=== PATIENT | male | born 1960 | race Caucasian/White ===

== ENCOUNTER 2020-10-12 14:09 | Inpatient (IN) | payer OTHER ==
[~2020-10-12] VITALS: Ht 165.1 cm; Wt 61.8 kg
[2020-10-12 14:57] LABS: BASOPHILS ABSOLUTE AUTO 0.02 K/mm3 (0.00-0.23); BASOPHILS PERCENT AUTO 0 % (0-2); EOSINOPHILS ABSOLUTE AUTO 0.03 K/mm3 (0.00-0.68); EOSINOPHILS PERCENT AUTO 0 % (0-6); Hematocrit 39.7 % (37.0-53.0); Hemoglobin 13.2 g/dL (13.5-17.5); IMMATURE GRAN ABSOLUTE AUTO 0.01 K/mm3 (0.00-0.10); IMMATURE GRAN PERCENT AUTO 0 % (0-1); LYMPHOCYTES ABSOLUTE AUTO 1.38 K/mm3 (0.84-5.20); LYMPHOCYTES PERCENT AUTO 21 % (21-46); MONOCYTES ABSOLUTE AUTO 0.46 K/mm3 (0.16-1.47); MONOCYTES PERCENT AUTO 7 % (4-13); Mean Corpuscular HGB Conc 33.2 g/dL (31.5-36.5); Mean Corpuscular Volume 87 fL (80-100); Mean Platelet Volume 8.9 fL (9.1-12.4); NEUTROPHILS ABSOLUTE AUTO 4.83 K/mm3 (1.96-9.15); NEUTROPHILS PERCENT AUTO 72 % (41-73); Platelet Count 345 K/mm3 (150-400); RDW Coefficient Variation 13.6 % (11.7-14.2); RDW Standard Deviation 43.8 fL (35.1-46.3); Red Blood Cell Count 4.55 M/mm3 (4.30-5.90); White Blood Cell Count 6.73 K/mm3 (4.00-11.30)
[2020-10-12 15:18] LABS: Alanine Aminotransfer (ALT/SGP 54 U/L (12-78); Albumin, Blood 3.2 g/dL (3.4-5.0); Alk Phos 103 U/L (50-136); Anion Gap 7 mmol/L (6-16); Aspartate Aminotrans (AST/SGOT 27 U/L (12-37); Bilirubin, Total 0.8 mg/dL (0.1-1.0); Blood Urea Nitrogen 26 mg/dL (8-24); Bun/Creatinine Ratio 23.9 (12.0-20.0); CO2, Blood 23 mmol/L (21-32); Calcium, Blood 8.2 mg/dL (8.5-10.1); Chloride, Blood 108 mmol/L (98-108); Creatinine, Blood 1.09 mg/dL (0.60-1.20); Globulin, Blood 3.1 g/dL (2.2-4.0); Glomerular Filtration Rate >60 (60-); Glucose, Blood 149 mg/dL (70-99); Potassium, Blood 3.8 mmol/L (3.5-5.5); Sodium, Blood 138 mmol/L (136-145); Total Protein, Blood 6.3 g/dL (6.4-8.2); Troponin I 0.088 ng/mL (0.000-0.040)
[2020-10-12 18:11] LABS: U Amphetamine Screen DETECTED; U Barbituate Screen Not Detected; U Benzodiazapine Screen Not Detected; U Cocaine Screen Not Detected; U Methadone Screen Not Detected; U Methamphetamine Screen DETECTED
[2020-10-12 18:12] LABS: U Buprenorphine Screen Not Detected; U Cannabinoids Screen DETECTED; U Opiates Screen Not Detected; U Oxycodone Screen Not Detected; U Phencyclidine Screen Not Detected; U Propoxyphene Screen Not Detected
--- NOTE | 2020-10-12 20:22 | NUR ---
ADMIT PT ARRIVED TO @1955, IND TRANSFERRED TO BED. DX c NEW ONSET CHF. ORIENTED TO & CALL LIGHT. WILL MONITOR.
[2020-10-13 03:06] LABS: BASOPHILS ABSOLUTE AUTO 0.04 K/mm3 (0.00-0.23); BASOPHILS PERCENT AUTO 1 % (0-2); EOSINOPHILS ABSOLUTE AUTO 0.06 K/mm3 (0.00-0.68); EOSINOPHILS PERCENT AUTO 1 % (0-6); Hemoglobin 13.3 g/dL (13.5-17.5); IMMATURE GRAN ABSOLUTE AUTO 0.03 K/mm3 (0.00-0.10); IMMATURE GRAN PERCENT AUTO 0 % (0-1); LYMPHOCYTES ABSOLUTE AUTO 1.49 K/mm3 (0.84-5.20); LYMPHOCYTES PERCENT AUTO 18 % (21-46); MONOCYTES ABSOLUTE AUTO 0.56 K/mm3 (0.16-1.47); MONOCYTES PERCENT AUTO 7 % (4-13); Mean Corpuscular HGB Conc 33.3 g/dL (31.5-36.5); Mean Corpuscular Volume 87 fL (80-100); NEUTROPHILS ABSOLUTE AUTO 5.94 K/mm3 (1.96-9.15); NEUTROPHILS PERCENT AUTO 73 % (41-73); Platelet Count 351 K/mm3 (150-400); RDW Coefficient Variation 13.6 % (11.7-14.2); RDW Standard Deviation 43.3 fL (35.1-46.3); Red Blood Cell Count 4.59 M/mm3 (4.30-5.90); White Blood Cell Count 8.12 K/mm3 (4.00-11.30)
[2020-10-13 03:25] LABS: Albumin, Blood 3.3 g/dL (3.4-5.0); Bilirubin, Total 0.8 mg/dL (0.1-1.0); Bun/Creatinine Ratio 22.1 (12.0-20.0); Calcium, Blood 8.7 mg/dL (8.5-10.1); Creatinine, Blood 1.31 mg/dL (0.60-1.20); Globulin, Blood 3.2 g/dL (2.2-4.0); Potassium, Blood 3.7 mmol/L (3.5-5.5); Total Protein, Blood 6.5 g/dL (6.4-8.2)
--- NOTE | 2020-10-13 04:55 | NUR ---
SHIFT SUMMARY AOX4. VSS. TELE NSR @98. SPO2 >90% ON RA. REPORTS SOB c MINIMAL ACTIVITY. LUNGS DIM IN BASES. HAS DRY NONPRODUCTIVE COUGH. RECIEVED IV LASIX IN ER FOR CHF, PT HAS VOIDED MULTIPLE TIMES. STRICT I&O. +1 EDEMA BLE. REPORTS FEELING "BLOATED" HOWEVER TOLERATING DIET & DENIES N/V. REPORTS 4/10 BACK PAIN, GAVE TYLENOL 1X. REPORTS HE'S BEEN HAVING DIFFICULTY SLEEPING, MEDICATED c RESTORIL PER ORDERS @HS & AROUND 0130 PT REPORTED FEELING RESTLESS, FIGITY, ANXIOUS & HAVING DIFFICULTY SLEEPING. PT REPORTS METH USE QOD & HASN'T "USED" SINCE ROUGHLY "TUESDAY" 10/10/20. CALL LIGHT IN REACH & PT ABLE TO MAKE NEEDS KNOWN.
--- NOTE | 2020-10-13 08:52 | NUR ---
ECHOCARDIOGRAM COMPLETED
--- NOTE | 2020-10-13 10:05 | NUR ---
PT STARTED SHIFT COMPLAINING OF HEARTBURN. NOTIFIED DR GARCIA AND SHE ADDED MEDICATION TO EMAR.PT THEN STATED HE WAS HAVING BACK PAIN DURING HIS ECHO AND INCREASED SOB. NOTIFIED DR GARCIA AND SHE ADDED A DOSE OF PAIN MEDS TO EMAR.
[2020-10-13 10:35] LABS: SARS-Cov-2 (COVID-19) PCR, MMC NEGATIVE (NEGATIVE)
--- NOTE | 2020-10-13 16:44 | NUR ---
PT AOX4 AND COOPERATIVE OF CARE. PT STARTED SHIFT WITH COMPLAINTS OF HEART BURN AND DR GARCIA NOTIFIED.PT THEN STARTED TO FEEL SHORT OF BREATH DURING ECHO. DR GARCIA ADDED MEDICATIONS TO EMAR. PT APPEAR TO BE IMPROVED. PT THEN REPORT TO AID A VERY DRASTIC EPISODE OF SOB AND DIAPHORETIC. VITALS AT THIS TIME WERE 143/[address] GARCIA NOTIFIED AND ADDED MORE MEDITATION TO EMAR AND CONSULT TO BOAT MASTER. CONSULT WAS PLACED IMMEDIATELY AND PT SEEMED TO IMPROVE AGAIN. PT @ 1605 ANOTHER EPISODE OF SOB OCCURED THIS LOAD MANAGER WAS IN THE ROOM WHEN THE EPISODE PEAKED AND WAS ABLE TO CALL [employer]. HR HAD DROPPED DOWN TO 59 DURING THE WORST POINT AND SOON HIS HR INCREASED PT STATED HE WAS FEELING BETTER. WILL CONTINUE TO MONITOR CLOSELY. CALL LIGHT IS WITHIN REACH.
--- NOTE | 2020-10-13 22:16 | NUR ---
HR CHANGES *LATE ENTRY* PT HAD 2 EPISODES OF HR CHANGES, 1ST @2004 & 2ND @2130. HR TRENDING IN 80'S THEN DROPS TO 58 & INCREASES TO 110 ALL WITHIN 1 MIN PER FOOTWEAR SALES REPRESENTATIVE @SINUS RHYTHM. WHEN THIS IS OCCURRING PT FEELS ANXIOUS, VERY SOB, HAS COLD SWEATS. DURING 2ND EPISODE TROMBONE SLIDE ASSEMBLER WAS GETTING VITALS, BP @163/112 & THEN DECREASED TO 131/100 ALSO SPO2 DROPPED TO 78% WHEN HR DROPPED & THEN SPO2 INCREASED BACK TO 98% ON RA WHILE HR INCREASES. DURING 1ST EPISODE PT WAS GRABBING TABLET OUT OF BEDSIDE DRAWER WHILE LYING IN BED & 2ND EPISODE PT WAS LYING RESTING IN BED SUCKING ON THROAT LOSANGE. PT STATES HE HAS BEEN HAVING THESE EPISODES FOR THE PAST 2 WKS. INFORMED CHARGE NURSE RADHA Guillen & UBALDO Srivastava WILL MONITOR.
[2020-10-14 05:13] LABS: BASOPHILS ABSOLUTE AUTO 0.04 K/mm3 (0.00-0.23); BASOPHILS PERCENT AUTO 1 % (0-2); EOSINOPHILS ABSOLUTE AUTO 0.01 K/mm3 (0.00-0.68); EOSINOPHILS PERCENT AUTO 0 % (0-6); Hematocrit 44.3 % (37.0-53.0); Hemoglobin 14.5 g/dL (13.5-17.5); IMMATURE GRAN ABSOLUTE AUTO 0.03 K/mm3 (0.00-0.10); IMMATURE GRAN PERCENT AUTO 0 % (0-1); LYMPHOCYTES ABSOLUTE AUTO 1.67 K/mm3 (0.84-5.20); LYMPHOCYTES PERCENT AUTO 21 % (21-46); MONOCYTES ABSOLUTE AUTO 0.68 K/mm3 (0.16-1.47); MONOCYTES PERCENT AUTO 9 % (4-13); Mean Corpuscular HGB 28.9 pg (26.0-34.0); Mean Corpuscular HGB Conc 32.7 g/dL (31.5-36.5); Mean Corpuscular Volume 88 fL (80-100); Mean Platelet Volume 9.3 fL (9.1-12.4); NEUTROPHILS PERCENT AUTO 69 % (41-73); Platelet Count 348 K/mm3 (150-400); RDW Coefficient Variation 13.5 % (11.7-14.2); RDW Standard Deviation 43.5 fL (35.1-46.3); Red Blood Cell Count 5.01 M/mm3 (4.30-5.90); White Blood Cell Count 7.83 K/mm3 (4.00-11.30)
[2020-10-14 05:49] LABS: Bun/Creatinine Ratio 26.1 (12.0-20.0); Calcium, Blood 8.7 mg/dL (8.5-10.1); Creatinine, Blood 1.42 mg/dL (0.60-1.20); Magnesium, Blood 2.3 mg/dL (1.6-2.4); Potassium, Blood 4.6 mmol/L (3.5-5.5); Thyroid Stimulating Hormone 2.01 uIU/mL (0.360-4.800)
--- NOTE | 2020-10-14 06:00 | NUR ---
SHIFT SUMMARY AOX4. VERY ANXIOUS ABOUT CURRENT HEALTH CONDITION & DIFFICULTY BREATHING, READ PREVIOUS NOTE, ATIVAN GIVEN. HAD MULTIPLE EPISODES COLD PALE CLAMMY SKIN c DIAPHORESIS, DYSPNEA, DIZZINESS THAT WAKES PT UP FROM SLEEP, READ PREVIOUS NOTES. TELE NSR 90'S, HR DROPS THEN INCREASES ABOVE 100 WHEN SOB & ANXIOUS. SPO2 @66-78% DURING EPISODES OF DYSPNEA, & INCREASES BACK UP TO 100% ON RA WITHIN MIN, PLACED 2L O2 FOR COMFORT & TO MAINTAIN O2 LEVELS. LUNGS HAVE FINE CRACKLES IN BASES. REPORTS ORO AFTER EPISODES OF SOB. ENCOURAGED PT TO SIT c HOB ELEVATED & PROPPED TO PREVENT ORTHOPNEA. REPORTED 2/10 CP OVER L BREAST STATES "LIKE HEARTBURN" 1X, GAVE OMEPRAZOLE & TYLENOL, NO FURTHER DISCOMFORT NOTED. CALL LIGHT IN REACH, PT YELLS OUT NEEDS OR IF IN DISCOMFORT MOST OF THE TIME. WILL MONITOR.
--- NOTE | 2020-10-14 18:06 | NUR ---
SHIFT SUMMARY PT ALERT AND ORIENTED. PT SOB ON EXERTION. PT IS ON 2L OF 02; SATS 90% AT REST. PT DESATS ON EXERTION HIGH 80'S. PT ALSO HAD AN EPISODE OF SOB WHEN URINATING. PT TURNED RED AND SWEATING; CHECKED HIS VS- WHICH WAS WNL- DESAT TO HIGH 70'S. ENCOURAGED THE PT TO SIT BACK DOWN AND REST; THEN THE 02 SATS CAME BACK UP TO 90S ON 2-3L. PT WAS NSR ON TELE. AT BEDSIDE AND DISCUSSED ABOUT THE PLAN UPON DISCHARGE. PT EDUCATED ABOUT STOPPING METH; HE STATED HE QUIT USING DRUGS. DENIES ANY CHEST PAIN TODAY OR PAIN. BED IS IN THE LOWEST POSITION AND CALL LIGHT WITHIN REACH.
--- NOTE | 2020-10-15 05:45 | NUR ---
SHIFT SUMMARY AOX4. VSS. TELE NSR @82. PT SLEPT SOUNDLY T/O NIGHT & HAD A MORE RESTFUL NIGHT THEN PREVIOUS NIGHT. REPORTS 2/10 BACK PAIN, GAVE TYLENOL & NO FURTHER PAIN REPORTED. STATES HIS BREATHING "IS BETTER", HASN'T HAD ANY EPISODES OF DYSPNEA, ANXIETY OR SWEATING LIKE PREVIOUS NIGHT. SPO2 >90% ON RA WHILE @REST SPO2 DOES DROP TO 80'S c ACTIVITY, THEREFORE PT ENCOURAGED TO WEAR 2L O2, HOWEVER PT REMOVES O2 FREQUENTLY. PLAN TO POSSIBLY DC TODAY & FOLLOW CARDIOLOGY OUTPATIENT. CALL LIGHT IN REACH & PT ABLE TO MAKE NEEDS KNOWN.
[2020-10-15 06:03] LABS: Bun/Creatinine Ratio 30.1 (12.0-20.0); Calcium, Blood 8.4 mg/dL (8.5-10.1); Creatinine, Blood 1.46 mg/dL (0.60-1.20); Potassium, Blood 4.2 mmol/L (3.5-5.5)
[2020-10-15] MEDS ORDERED: ASPI81CH PO (11:42)
[2020-10-15] MEDS ORDERED: FURO20 PO (11:43)
[2020-10-15] MEDS ORDERED: HYDPAM25 PO (11:44)
[2020-10-15] MEDS ORDERED: Lisinopril2.5 MG PO (11:45)
[2020-10-15] MEDS ORDERED: METO50ER PO (11:46)
[2020-10-15] MEDS ORDERED: NICO21TP TOP (11:47)
[2020-10-15] MEDS ORDERED: ALDACTONE25 MG PO (11:48)
--- NOTE | 2020-10-15 12:03 | NUR ---
DISCHARGE INSTRUCTIONS REVIEWED WITH PATIENT. ALL QUESTIONS ANSWERED. PATIENT IS AWAIING LIFE-VEST PLACEMENT/FITTING AND HOME O2 EVAL PRIOR TO DISCHARGING HOME. PATIENT RESTING IN ROOM AT THIS TIME. CARDIOLOGY REFERAL HAS BEEN PLACED.
--- NOTE | 2020-10-15 16:59 | NUR ---
PATIENT IS ALERT AND ORIENTED BUT HAS BEEN EXTREMELY LETHARGIC TODAY, SLEEPING THE MAJORITY OF THE DAY. THE PLAN WAS FOR THE PATIENT TO DISCHARGE HOME AND HE WILL REQUIRE SOME OXYGEN WITH ACTIVITY, HOWEVER HE WAS NOT ABLE TO OBTAIN THE LIFE-VEST NEEDED TO DISCHARGE SO D/C IS BEING POSTPONED UNTIL TOMORROW. THE PATIENTS VITALS HAVE BEEN STABLE. NO ACUTE CHANGES NOTED OR REPORTED AT THIS TIME. THE PATIENT CONTINUES TO REST IN HIS BED AT THIS TIME. CALL LIGHT WITHIN HIS REACH.
--- NOTE | 2020-10-16 03:33 | NUR ---
SHIFT SUMMARY PATIENT HAD NO ACUTE CHANGES OBSERVED. AXOX 4 AND SBA TO BATHROOM. VSS/AFEBRILE. DENIES PAIN, SOB, AND N/V. NO IV ACCESS. RESTORIL 7.5 MG GIVEN FOR INSOMNIA. PATIENT REPORTED ANXIETY AND VISTARIL 25 MG GIVEN PER EMAR. POSSIBLE DISCHARGE. TAKES MEDICATION WHOLE WITH WATER. COOPERATIVE WITH CARE. CALL LIGHT IN REACH. BED IN LOWEST POSITION. WILL CONTINUE TO MONITOR UNTIL DAY SHIFT NURSE ASSUMES CARE.
[2020-10-16 08:49] LABS: Bun/Creatinine Ratio 27.7 (12.0-20.0); Calcium, Blood 8.5 mg/dL (8.5-10.1); Creatinine, Blood 1.41 mg/dL (0.60-1.20); Potassium, Blood 4.2 mmol/L (3.5-5.5)
--- NOTE | 2020-10-16 15:39 | NUR ---
PT TO REMAIN OVERNIGHT FOR LIFEVEST PLACEMENT IN THE AM
--- NOTE | 2020-10-16 18:57 | NUR ---
NO ACUTE CHANGES THIS SHIFT, WILL CONTINUE TO MONITOR AND REPORT TO ONCOMING RN
--- NOTE | 2020-10-17 03:56 | NUR ---
SHIFT SUMMARY PATIENT HAD NO ACUTE CHANGES OBSERVED. AXOX 4 AND SBA TO INDEPENDENT IN ROOM. DAY RN REPORTED PATIENT WAS TO DISCHARGE TUESDAY AND PIV REMOVED AND TELEMETRY REMOVED BUT ORDER STILL IN PLACE. PATIENT POSSIBLE DISCHARGE. RESTORIL 7.5 MG GIVEN FOR INSOMNIA AND VISTARIL 25 MG FOR ANXIETY. NICOTINE PATCH IN PLACE. COOPERATIVE WITH CARE. CALL LIGHT IN REACH. BED IN LOWEST POSITION. WILL CONTINUE TO MONITOR UNTIL DAY SHIFT NURSE ASSUMES CARE.
--- NOTE | 2020-10-17 06:33 | NUR ---
PATIENT REPORTS PANIC ATTACK. SITTING ON SIDE OF BED SOB. RESOLVED FAIRLY QUICKLY. VISTARIL GIVEN PER EMAR FOR ANXIETY. PATIENT REPORTS FEELING BETTER. CALL LIGHT IN REACH.
[2020-10-17 10:05] LABS: Anion Gap 6 mmol/L (6-16); Blood Urea Nitrogen 39 mg/dL (8-24); Bun/Creatinine Ratio 30.2 (12.0-20.0); CO2, Blood 24 mmol/L (21-32); Calcium, Blood 8.4 mg/dL (8.5-10.1); Chloride, Blood 105 mmol/L (98-108); Creatinine, Blood 1.29 mg/dL (0.60-1.20); Glomerular Filtration Rate >60 (60-); Glucose, Blood 145 mg/dL (70-99); Potassium, Blood 4.3 mmol/L (3.5-5.5); Sodium, Blood 135 mmol/L (136-145)
--- NOTE | 2020-10-17 14:59 | NUR ---
DISCHARGE NOTE PT DC HOME AND WAS PICKED UP BY HIS FRIEND. ST[facility]FF [facility] TAUGHT PT ABOUT THE LIFE VEST AND FITTED HIM FOR IT. THE DISCHARGE PACKET WAS COMPLETED ON 10/15 AND NO CHANGES WERE MADE. PACKET WAS REPRINTED AND THIS NURSE REVIEWED THE PACKET WITH. PT DID NOT HAVE ANY QUESTIONS AND WAS TAKEN OFF THE FLOOR AT 1325 IN A WHEELCHAIR BY ROBERT. PT TOOK HOME O2 OXYGEN AND LIFE VEST WITH HIM.
== END 2020-10-17 13:25 | disposition home or self-care (01) | DRG 291 ==
LOC: ER 14:09 → MEDS 17:37 → ENPENDDIS 10-15 18:23 → MEDS 10-17 13:25
PROVIDERS: Emergency Medicine; Internal Medicine; Nurse Practitioner Acute Care; ADMIT Internal Medicine
DX: I50.21 Acute systolic (congestive) heart failure (principal); J96.01 Acute respiratory failure with hypoxia; N17.9 Acute kidney failure, unspecified; I42.9 Cardiomyopathy, unspecified; F17.210 Nicotine dependence, cigarettes, uncomplicated; F15.10 Other stimulant abuse, uncomplicated; K21.9 Gastro-esophageal reflux disease without esophagitis; I27.20 Pulmonary hypertension, unspecified; I08.3 Combined rheumatic disorders of mitral, aortic and tricuspid valves; F41.9 Anxiety disorder, unspecified; R77.8 Other specified abnormalities of plasma proteins
CPT/HCPCS: 36415; 71045; 80048; 80053; 83735; 83880; 84443; 84484; 85025; 93005; 93010; 93306; 94640; 94761; 96374; 99285-25; A9270; J1650; J1940; J2270; Q0177; U0004

== ENCOUNTER 2021-01-10 21:41 | Emergency (ER) | payer OTHER ==
[~2021-01-10] VITALS: Ht 167.6 cm; Wt 65.8 kg
[~2021-01-10 21:41] MED LIST: ALDACTONE25 MG PO; ASPI81CH PO; FURO20 PO; HYDPAM25 PO; Lisinopril2.5 MG PO; METO50ER PO; NICO21TP TOP
[2021-01-10 22:20] LABS: BASOPHILS ABSOLUTE AUTO 0.02 K/mm3 (0.00-0.23); BASOPHILS PERCENT AUTO 0 % (0-2); EOSINOPHILS ABSOLUTE AUTO 0.01 K/mm3 (0.00-0.68); EOSINOPHILS PERCENT AUTO 0 % (0-6); Hematocrit 39.6 % (37.0-53.0); IMMATURE GRAN ABSOLUTE AUTO 0.02 K/mm3 (0.00-0.10); IMMATURE GRAN PERCENT AUTO 0 % (0-1); LYMPHOCYTES ABSOLUTE AUTO 1.17 K/mm3 (0.84-5.20); LYMPHOCYTES PERCENT AUTO 14 % (21-46); MONOCYTES ABSOLUTE AUTO 0.57 K/mm3 (0.16-1.47); MONOCYTES PERCENT AUTO 7 % (4-13); Mean Corpuscular HGB 28.3 pg (26.0-34.0); Mean Corpuscular HGB Conc 32.8 g/dL (31.5-36.5); Mean Corpuscular Volume 86 fL (80-100); Mean Platelet Volume 9.5 fL (9.1-12.4); NEUTROPHILS ABSOLUTE AUTO 6.79 K/mm3 (1.96-9.15); NEUTROPHILS PERCENT AUTO 79 % (41-73); Platelet Count 363 K/mm3 (150-400); RDW Coefficient Variation 15.3 % (11.7-14.2); RDW Standard Deviation 47.8 fL (35.1-46.3); White Blood Cell Count 8.58 K/mm3 (4.00-11.30)
[2021-01-10 22:47] LABS: Alanine Aminotransfer (ALT/SGP 65 U/L (12-78); Albumin, Blood 3.3 g/dL (3.4-5.0); Albumin/Globulin Ratio 0.9 (0.8-1.8); Alk Phos 126 U/L (50-136); Anion Gap 9 mmol/L (6-16); Aspartate Aminotrans (AST/SGOT 46 U/L (12-37); Bilirubin, Total 1.4 mg/dL (0.1-1.0); Blood Urea Nitrogen 27 mg/dL (8-24); Bun/Creatinine Ratio 23.7 (12.0-20.0); CO2, Blood 24 mmol/L (21-32); Calcium, Blood 8.9 mg/dL (8.5-10.1); Chloride, Blood 105 mmol/L (98-108); Creatinine, Blood 1.14 mg/dL (0.60-1.20); Globulin, Blood 3.7 g/dL (2.2-4.0); Glomerular Filtration Rate >60 (60-); Glucose, Blood 127 mg/dL (70-99); Potassium, Blood 4.3 mmol/L (3.5-5.5); Sodium, Blood 138 mmol/L (136-145); Troponin I 0.051 ng/mL (0.000-0.040)
[2021-01-10 23:29] LABS: SARS-Cov-2 (COVID-19) PCR, MMC NEGATIVE (NEGATIVE)
== END 2021-01-11 01:41 | disposition home or self-care (01) ==
LOC: ER 21:41
PROVIDERS: Emergency Medicine
DX: I50.9 Heart failure, unspecified (principal); J96.91 Respiratory failure, unspecified with hypoxia; I11.0 Hypertensive heart disease with heart failure; F17.210 Nicotine dependence, cigarettes, uncomplicated; F17.290 Nicotine dependence, other tobacco product, uncomplicated; F15.20 Other stimulant dependence, uncomplicated; R77.8 Other specified abnormalities of plasma proteins; I51.7 Cardiomegaly; Z79.82 Long term (current) use of aspirin; Z20.822 Contact with and (suspected) exposure to COVID-19
CPT/HCPCS: 71045; 80053; 83880; 84484; 85025; 93005; 93010; 96374; 99285-25; A9270; J1940; U0004

== ENCOUNTER 2021-04-18 23:11 | Observation (INO) | payer OTHER ==
[~2021-04-18] VITALS: Ht 170.2 cm; Wt 61.2 kg
[2021-04-18 23:33] LABS: BASOPHILS ABSOLUTE AUTO 0.03 K/mm3 (0.00-0.23); BASOPHILS PERCENT AUTO 0 % (0-2); EOSINOPHILS ABSOLUTE AUTO 0.03 K/mm3 (0.00-0.68); EOSINOPHILS PERCENT AUTO 0 % (0-6); Hematocrit 38.5 % (37.0-53.0); Hemoglobin 12.6 g/dL (13.5-17.5); IMMATURE GRAN ABSOLUTE AUTO 0.03 K/mm3 (0.00-0.10); IMMATURE GRAN PERCENT AUTO 0 % (0-1); LYMPHOCYTES ABSOLUTE AUTO 1.67 K/mm3 (0.84-5.20); LYMPHOCYTES PERCENT AUTO 18 % (21-46); MONOCYTES ABSOLUTE AUTO 0.72 K/mm3 (0.16-1.47); MONOCYTES PERCENT AUTO 8 % (4-13); Mean Corpuscular HGB 29.3 pg (26.0-34.0); Mean Corpuscular HGB Conc 32.7 g/dL (31.5-36.5); Mean Corpuscular Volume 90 fL (80-100); Mean Platelet Volume 9.4 fL (9.1-12.4); NEUTROPHILS ABSOLUTE AUTO 6.65 K/mm3 (1.96-9.15); NEUTROPHILS PERCENT AUTO 73 % (41-73); Platelet Count 333 K/mm3 (150-400); RDW Coefficient Variation 15.4 % (11.7-14.2); RDW Standard Deviation 50.1 fL (35.1-46.3); White Blood Cell Count 9.13 K/mm3 (4.00-11.30)
[2021-04-18 23:55] LABS: Alanine Aminotransfer (ALT/SGP 99 U/L (12-78); Albumin, Blood 3.1 g/dL (3.4-5.0); Albumin/Globulin Ratio 0.9 (0.8-1.8); Alk Phos 131 U/L (50-136); Anion Gap 10 mmol/L (6-16); Aspartate Aminotrans (AST/SGOT 79 U/L (12-37); Bilirubin, Total 0.8 mg/dL (0.1-1.0); Blood Urea Nitrogen 29 mg/dL (8-24); Bun/Creatinine Ratio 30.8 (12.0-20.0); CO2, Blood 22 mmol/L (21-32); Calcium, Blood 8.8 mg/dL (8.5-10.1); Chloride, Blood 108 mmol/L (98-108); Creatinine, Blood 0.94 mg/dL (0.60-1.20); Globulin, Blood 3.6 g/dL (2.2-4.0); Glomerular Filtration Rate >60 (60-); Glucose, Blood 132 mg/dL (70-99); Potassium, Blood 4.4 mmol/L (3.5-5.5); Sodium, Blood 140 mmol/L (136-145); Total Protein, Blood 6.7 g/dL (6.4-8.2)
[2021-04-19 00:22] LABS: Influenza A, PCR NEGATIVE (NEGATIVE); Influenza B, PCR NEGATIVE (NEGATIVE); Resp Syncytial Virus, PCR NEGATIVE (NEGATIVE); SARS-Cov-2 (COVID-19) PCR, MMC NEGATIVE (NEGATIVE)
[2021-04-19 02:04] LABS: U Amphetamine Screen DETECTED; U Barbituate Screen Not Detected; U Benzodiazapine Screen Not Detected; U Cocaine Screen Not Detected; U Methadone Screen Not Detected; U Methamphetamine Screen DETECTED; U Opiates Screen Not Detected
[2021-04-19 02:05] LABS: U Buprenorphine Screen Not Detected; U Cannabinoids Screen DETECTED; U Oxycodone Screen Not Detected; U Phencyclidine Screen Not Detected; U Propoxyphene Screen Not Detected
[2021-04-19 05:34] LABS: BASOPHILS ABSOLUTE AUTO 0.01 K/mm3 (0.00-0.23); BASOPHILS PERCENT AUTO 0 % (0-2); EOSINOPHILS PERCENT AUTO 0 % (0-6); Hematocrit 36.6 % (37.0-53.0); Hemoglobin 12.1 g/dL (13.5-17.5); IMMATURE GRAN ABSOLUTE AUTO 0.06 K/mm3 (0.00-0.10); IMMATURE GRAN PERCENT AUTO 1 % (0-1); LYMPHOCYTES ABSOLUTE AUTO 0.52 K/mm3 (0.84-5.20); LYMPHOCYTES PERCENT AUTO 7 % (21-46); MONOCYTES ABSOLUTE AUTO 0.14 K/mm3 (0.16-1.47); MONOCYTES PERCENT AUTO 2 % (4-13); Mean Corpuscular HGB 28.6 pg (26.0-34.0); Mean Corpuscular HGB Conc 33.1 g/dL (31.5-36.5); Mean Corpuscular Volume 87 fL (80-100); Mean Platelet Volume 9.3 fL (9.1-12.4); NEUTROPHILS ABSOLUTE AUTO 6.56 K/mm3 (1.96-9.15); NEUTROPHILS PERCENT AUTO 90 % (41-73); Platelet Count 353 K/mm3 (150-400); RDW Coefficient Variation 15.2 % (11.7-14.2); Red Blood Cell Count 4.23 M/mm3 (4.30-5.90); White Blood Cell Count 7.29 K/mm3 (4.00-11.30)
[2021-04-19 05:59] LABS: Alanine Aminotransfer (ALT/SGP 172 U/L (12-78); Albumin/Globulin Ratio 0.9 (0.8-1.8); Alk Phos 130 U/L (50-136); Anion Gap 10 mmol/L (6-16); Aspartate Aminotrans (AST/SGOT 163 U/L (12-37); Bilirubin, Total 0.9 mg/dL (0.1-1.0); Blood Urea Nitrogen 27 mg/dL (8-24); Bun/Creatinine Ratio 27.5 (12.0-20.0); CO2, Blood 24 mmol/L (21-32); Calcium, Blood 8.8 mg/dL (8.5-10.1); Chloride, Blood 104 mmol/L (98-108); Creatinine, Blood 0.98 mg/dL (0.60-1.20); Globulin, Blood 3.4 g/dL (2.2-4.0); Glomerular Filtration Rate >60 (60-); Glucose, Blood 208 mg/dL (70-99); Potassium, Blood 3.9 mmol/L (3.5-5.5); Sodium, Blood 138 mmol/L (136-145); Total Protein, Blood 6.4 g/dL (6.4-8.2)
--- NOTE | 2021-04-19 06:41 | NUR ---
PATIENT IS A&OX4. PLEASANT AND COOPERATIVE WITH CARE. HE GETS PROFOUNDLY ANXIOUS WHEN HE BEGINS TO GET SOB, AND HAS A SHEET FROM ER WITH HINTS TO HANDLE HIS ANXIETY. HE READS IT EACH TIME THIS HAPPENS. NIYAH WAS GIVEN ATARAX FOR HIS ANXIETY WHICH ALSO SEEMED TO HELP A LOT. VOIDING LOTS AFTER IV LASIX IN ER. WOULD LIKE A FLU SHOT IF HE WASN'T GIVEN ONE DURING HIS RECENT STAY. LUNG SOUNDS ARE COARSE WITH EXP/INSP WHEEZES THROUGHOUT
--- NOTE | 2021-04-19 16:29 | NUR ---
PT AAOX4 STABLE VITALS AND NO ACUTE DISTRESS NOTED,POC REVIEWED WITH PT HAD A SHOWER THIS MORNING,COOPERATIVE WITH SAFETY MEASURES,ORDERS FOR D/C AND PT D/C'D AT 1630,TRANSPORTATION ARRANGED BY THE FACILITY, IV D/C'D, SITE CLEAN,DENIES PAIN. TRANSPORTAION LEFT WITH VIA W/C.ALL PRESCRIPTION GIVEN TO HIM HE DIDNOT WANT TO BE CALLED IN A PHARMACY.
== END 2021-04-19 16:34 | disposition home or self-care (01) ==
LOC: ER 23:11 → MEDS 23:12 → ER 04-19 00:37 → MEDS 04-19 00:37
PROVIDERS: Emergency Medicine; ADMIT Internal Medicine
DX: I50.23 Acute on chronic systolic (congestive) heart failure (principal); I42.7 Cardiomyopathy due to drug and external agent; T43.625S Adverse effect of amphetamines, sequela; J96.01 Acute respiratory failure with hypoxia; F15.188 Other stimulant abuse with other stimulant-induced disorder; I10 Essential (primary) hypertension; J44.9 Chronic obstructive pulmonary disease, unspecified; F17.210 Nicotine dependence, cigarettes, uncomplicated; Z91.14 Patient's other noncompliance with medication regimen; Z79.82 Long term (current) use of aspirin; Z20.822 Contact with and (suspected) exposure to COVID-19
CPT/HCPCS: 0241U; 36415; 71045; 80053; 83605; 83880; 84484; 85025; 93005; 93010; 93970; 94644; 94760; A9270; J1650; J1940; J2930

== ENCOUNTER 2022-12-31 10:10 | Emergency (ER) | payer OTHER ==
[~2022-12-31] VITALS: Ht 175.3 cm; Wt 61.2 kg
[2022-12-31 10:38] LABS: BASOPHILS ABSOLUTE AUTO 0.02 K/mm3 (0.00-0.23); BASOPHILS PERCENT AUTO 0 % (0-2); EOSINOPHILS PERCENT AUTO 0 % (0-6); Hematocrit 34.7 % (37.0-53.0); Hemoglobin 10.8 g/dL (13.5-17.5); IMMATURE GRAN ABSOLUTE AUTO 0.05 K/mm3 (0.00-0.10); IMMATURE GRAN PERCENT AUTO 1 % (0-1); LYMPHOCYTES ABSOLUTE AUTO 0.99 K/mm3 (0.84-5.20); LYMPHOCYTES PERCENT AUTO 13 % (21-46); MONOCYTES ABSOLUTE AUTO 0.42 K/mm3 (0.16-1.47); MONOCYTES PERCENT AUTO 6 % (4-13); Mean Corpuscular HGB 26.1 pg (26.0-34.0); Mean Corpuscular HGB Conc 31.1 g/dL (31.5-36.5); Mean Corpuscular Volume 84 fL (80-100); NEUTROPHILS ABSOLUTE AUTO 6.09 K/mm3 (1.96-9.15); NEUTROPHILS PERCENT AUTO 80 % (41-73); Platelet Count 334 K/mm3 (150-400); RDW Coefficient Variation 14.7 % (11.7-14.2); RDW Standard Deviation 44.9 fL (35.1-46.3); Red Blood Cell Count 4.14 M/mm3 (4.30-5.90); White Blood Cell Count 7.57 K/mm3 (4.00-11.30)
[2022-12-31 10:58] LABS: Albumin, Blood 2.9 g/dL (3.4-5.0); Albumin/Globulin Ratio 0.8 (0.8-1.8); Bun/Creatinine Ratio 23.7 (12.0-20.0); Calcium, Blood 8.2 mg/dL (8.5-10.1); Creatinine, Blood 0.89 mg/dL (0.60-1.20); Globulin, Blood 3.6 g/dL (2.2-4.0); Potassium, Blood 4.5 mmol/L (3.5-5.5); Total Protein, Blood 6.5 g/dL (6.4-8.2)
[2022-12-31 12:52] LABS: Source, Urine Clean Catch
[2022-12-31 12:59] LABS: Appearance, Urine Clear (Clear); Bilirubin, Urine Neg (Neg); Blood, Urine Neg (Neg); Color, Urine Yellow (P-Yellow); Glucose Qualitative, Urine Neg (Neg); Ketones, Urine Neg (Neg); Leukocyte Esterase, Urine 1+ (Neg); Nitrite, Urine Neg (Neg); Protein, Urine 1+ (Neg); Specific Gravity, Urine 1.025 (1.003-1.022); Urobilinogen, Urine NORM (Normal)
[2022-12-31 13:14] LABS: Bacteria Not Seen /hpf; Red Blood Cells, Urine 0-2 /hpf (0-2); Squamous Epithelial Cells Not Seen /hpf (Few); White Blood Cells, Urine 0-2 /hpf (0-5)
[2022-12-31 13:19] LABS: U Amphetamine Screen DETECTED; U Barbituate Screen Not Detected; U Benzodiazapine Screen Not Detected; U Cannabinoids Screen DETECTED; U Methamphetamine Screen DETECTED
[2022-12-31 13:20] LABS: U Buprenorphine Screen Not Detected; U Cocaine Screen Not Detected; U Methadone Screen Not Detected; U Opiates Screen Not Detected; U Oxycodone Screen Not Detected; U Phencyclidine Screen Not Detected; U Propoxyphene Screen Not Detected
[2022-12-31 18:00] VITALS: BP 145/102
[2022-12-31] MEDS ORDERED: FURO20 PO (18:39)
[2022-12-31] MEDS ORDERED: ALBU90OI INH (18:39)
== END 2022-12-31 19:28 | disposition home or self-care (01) ==
LOC: ER 10:10
PROVIDERS: Emergency Medicine; Physician Assistant
DX: R06.02 Shortness of breath (principal); I11.0 Hypertensive heart disease with heart failure; I50.9 Heart failure, unspecified; J44.9 Chronic obstructive pulmonary disease, unspecified; F17.200 Nicotine dependence, unspecified, uncomplicated; Z91.048 Other nonmedicinal substance allergy status; Z79.82 Long term (current) use of aspirin; Z79.899 Other long term (current) drug therapy
CPT/HCPCS: 71046; 71260; 80053; 81001; 83690; 83880; 84484; 85025; 85379; 93005; 93010; 94640; 94664; 96374; 99284-25; A9270; J1940; Q9967

== ENCOUNTER 2023-02-12 19:51 | Inpatient (IN) | payer OTHER ==
[~2023-02-12] VITALS: Ht 170.2 cm; Wt 59.6 kg
[~2023-02-12 19:51] MED LIST changes: +ALBU90OI INH
[2023-02-12 20:14] LABS: BASOPHILS ABSOLUTE AUTO 0.03 K/mm3 (0.00-0.23); BASOPHILS PERCENT AUTO 0 % (0-2); EOSINOPHILS ABSOLUTE AUTO 0.06 K/mm3 (0.00-0.68); EOSINOPHILS PERCENT AUTO 1 % (0-6); Hematocrit 26.6 % (37.0-53.0); Hemoglobin 8.2 g/dL (13.5-17.5); IMMATURE GRAN ABSOLUTE AUTO 0.02 K/mm3 (0.00-0.10); IMMATURE GRAN PERCENT AUTO 0 % (0-1); LYMPHOCYTES PERCENT AUTO 16 % (21-46); MONOCYTES ABSOLUTE AUTO 0.57 K/mm3 (0.16-1.47); MONOCYTES PERCENT AUTO 8 % (4-13); Mean Corpuscular HGB 23.5 pg (26.0-34.0); Mean Corpuscular HGB Conc 30.8 g/dL (31.5-36.5); Mean Corpuscular Volume 76 fL (80-100); Mean Platelet Volume 9.3 fL (9.1-12.4); NEUTROPHILS PERCENT AUTO 75 % (41-73); Platelet Count 337 K/mm3 (150-400); RDW Coefficient Variation 16.3 % (11.7-14.2); RDW Standard Deviation 44.9 fL (35.1-46.3); Red Blood Cell Count 3.49 M/mm3 (4.30-5.90); White Blood Cell Count 7.48 K/mm3 (4.00-11.30)
[2023-02-12 20:33] LABS: Albumin, Blood 2.9 g/dL (3.4-5.0); Albumin/Globulin Ratio 0.9 (0.8-1.8); Bilirubin, Total 1.3 mg/dL (0.1-1.0); Bun/Creatinine Ratio 33.3 (12.0-20.0); Calcium, Blood 8.1 mg/dL (8.5-10.1); Creatinine, Blood 0.75 mg/dL (0.60-1.20); Globulin, Blood 3.4 g/dL (2.2-4.0); Potassium, Blood 3.5 mmol/L (3.5-5.5); Total Protein, Blood 6.3 g/dL (6.4-8.2)
[2023-02-12 21:27] LABS: Influenza A, PCR NEGATIVE (NEGATIVE); Influenza B, PCR NEGATIVE (NEGATIVE); Resp Syncytial Virus, PCR NEGATIVE (NEGATIVE); SARS-Cov-2 (COVID-19) PCR, MMC NEGATIVE (NEGATIVE)
[2023-02-13 01:05] VITALS: BP 137/83
[2023-02-13 05:00] LABS: BASOPHILS ABSOLUTE AUTO 0.02 K/mm3 (0.00-0.23); BASOPHILS PERCENT AUTO 0 % (0-2); EOSINOPHILS ABSOLUTE AUTO 0.06 K/mm3 (0.00-0.68); EOSINOPHILS PERCENT AUTO 1 % (0-6); Hematocrit 28.1 % (37.0-53.0); Hemoglobin 8.4 g/dL (13.5-17.5); IMMATURE GRAN ABSOLUTE AUTO 0.05 K/mm3 (0.00-0.10); IMMATURE GRAN PERCENT AUTO 1 % (0-1); LYMPHOCYTES ABSOLUTE AUTO 1.32 K/mm3 (0.84-5.20); LYMPHOCYTES PERCENT AUTO 16 % (21-46); MONOCYTES ABSOLUTE AUTO 0.82 K/mm3 (0.16-1.47); MONOCYTES PERCENT AUTO 10 % (4-13); Mean Corpuscular HGB 23.1 pg (26.0-34.0); Mean Corpuscular HGB Conc 29.9 g/dL (31.5-36.5); Mean Corpuscular Volume 77 fL (80-100); Mean Platelet Volume 9.6 fL (9.1-12.4); NEUTROPHILS ABSOLUTE AUTO 6.09 K/mm3 (1.96-9.15); NEUTROPHILS PERCENT AUTO 73 % (41-73); Platelet Count 339 K/mm3 (150-400); RDW Coefficient Variation 16.3 % (11.7-14.2); RDW Standard Deviation 45.1 fL (35.1-46.3); Red Blood Cell Count 3.63 M/mm3 (4.30-5.90); White Blood Cell Count 8.36 K/mm3 (4.00-11.30)
[2023-02-13 05:35] LABS: Bun/Creatinine Ratio 30.3 (12.0-20.0); Calcium, Blood 8.4 mg/dL (8.5-10.1); Creatinine, Blood 0.89 mg/dL (0.60-1.20); Potassium, Blood 3.5 mmol/L (3.5-5.5)
[2023-02-13 07:29] VITALS: BP 118/78
[2023-02-13 08:53] LABS: Percent Saturation 5.9 % (20.0-50.0)
[2023-02-13 09:25] VITALS: BP 124/85
[2023-02-13 16:18] VITALS: BP 109/77
[2023-02-13 20:35] VITALS: BP 105/73
[2023-02-14 03:27] VITALS: BP 125/81
--- NOTE | 2023-02-14 05:38 | NUR ---
NIYAH WAS VERY ANXIOUS, SOB AND LABILE THROUGHOUT THE NIGHT. CONTINIUED TO TAKE OFF 02 MONITOR WELL NASAL CANULA. PATIENT GOT INTO SHOWER BY SELF AND BATHED THEN TOOK HIS IV OUT. THIS RN REALLY TRAUMATIZED HIM REPLASING IT. hOSPITALIST ORDERED HIM BENEDRYL IN HIS IV SOON IT WAS IN, AND PATIENT FELL QUICKLY TO SLEEP AFTER THAT. hE WOKE TO REFUSE AM LABS AND THIS RN TRIED TO EXPLAIN THAT WITHOUT THESE LABS WE COULD NOT ADEQUATELY TREAT HIM. HE AGREED TO THINK ABOUT IT LATER.
[2023-02-14 07:27] VITALS: BP 107/73
[2023-02-14 08:08] LABS: HBSAG SCREEN Negative (Negative); HCV AB Non Reactive (Non Reactive); HEP B CORE AB, TOT Negative (Negative)
[2023-02-14 09:41] LABS: BASOPHILS ABSOLUTE AUTO 0.02 K/mm3 (0.00-0.23); BASOPHILS PERCENT AUTO 0 % (0-2); EOSINOPHILS ABSOLUTE AUTO 0.01 K/mm3 (0.00-0.68); EOSINOPHILS PERCENT AUTO 0 % (0-6); Hematocrit 28.3 % (37.0-53.0); Hemoglobin 8.7 g/dL (13.5-17.5); IMMATURE GRAN ABSOLUTE AUTO 0.03 K/mm3 (0.00-0.10); IMMATURE GRAN PERCENT AUTO 0 % (0-1); LYMPHOCYTES ABSOLUTE AUTO 0.97 K/mm3 (0.84-5.20); LYMPHOCYTES PERCENT AUTO 12 % (21-46); MONOCYTES ABSOLUTE AUTO 0.43 K/mm3 (0.16-1.47); MONOCYTES PERCENT AUTO 5 % (4-13); Mean Corpuscular HGB 23.2 pg (26.0-34.0); Mean Corpuscular HGB Conc 30.7 g/dL (31.5-36.5); Mean Corpuscular Volume 76 fL (80-100); Mean Platelet Volume 9.4 fL (9.1-12.4); NEUTROPHILS ABSOLUTE AUTO 6.43 K/mm3 (1.96-9.15); NEUTROPHILS PERCENT AUTO 82 % (41-73); Platelet Count 336 K/mm3 (150-400); RDW Coefficient Variation 16.1 % (11.7-14.2); Red Blood Cell Count 3.75 M/mm3 (4.30-5.90); White Blood Cell Count 7.89 K/mm3 (4.00-11.30)
[2023-02-14 10:04] LABS: Albumin/Globulin Ratio 0.9 (0.8-1.8); Bilirubin, Total 1.5 mg/dL (0.1-1.0); Bun/Creatinine Ratio 27.7 (12.0-20.0); Calcium, Blood 8.4 mg/dL (8.5-10.1); Creatinine, Blood 1.19 mg/dL (0.60-1.20); Globulin, Blood 3.5 g/dL (2.2-4.0); Potassium, Blood 3.6 mmol/L (3.5-5.5); Total Protein, Blood 6.5 g/dL (6.4-8.2)
--- NOTE | 2023-02-14 10:18 | NUR ---
PT ALMOST WHISPERING THIS MORNING WHEN MEETING HIM. KNEES AND TIP OF NOSE DUSKY WHILE ON ROOM AIR. STATING HE HAD ALREADY GOTTEN HIS MEDS TODAY DESPITE NOT GETTING THEM YET. ALSO, WHEN ASKED IF HE HAD ANIMALS AT HOME HE SAID NO. WHILE SPEAKING WITH DR. BASHIR HE REPORTED HE HAD ANIMALS AND COWS. CORDLESS CONTINUOUS PULSE OX PLACED FOR PT COMFORT AND MOBILITY. SATS 100% ON 3L/M O2 TURNED OFF AND WHILE PT LAYING IN BED DOZING ON AND OFF SATS RANGE FROM 90%-100%.
[2023-02-14 15:58] VITALS: BP 98/61
--- NOTE | 2023-02-14 16:48 | NUR ---
SHIFT SUMMARY PT CLAIMED HE HAD A TAX PREPARER WITH HIM BUT WOULD'NT GIVE IT UP. LATER IN AFTERNOON PILLS THAT APPEARED TO BE GIVEN THIS MORNING FOUND IN HIS EMPTY APPLESAUCE CUP. PT CLAIMED HE HAD [place] PILLS TWICE TODAY AND HE DIDN'T HAVE WATER TO SWALLOW THEM. EXPLAINED TO PT HE'S ONLY RECEIVED 1 DOSE OF ORAL MEDS THIS MORNING AND HE HAD WATER TO SWALLOW THEM. ASKED FOR HIM TO RIM TURNING MACHINE OPERATOR HIS POCKETS TO SEE IF THERE WERE ANY MORE PILLS. 3 MORE PILLS FELL OUT AND HIS TAX PREPARER WELL. ASKED IF TAX PREPARER COULD BE LOCKED UP DUE TO FIRE SAFETY AND HE WAS AGREEABLE. SPOKE WITH MD ABOUT PTS MEDS FOUND AND ORDER FOR SPIRONOLACTONE. MENTATION APPEARS BETTER THAN THIS MORNING. SPEECH STRONGER AND PT MORE VERBAL AND YELLS AT TIMES. KEEPING O2 ON AND CONTINUOUS PULSE ON FUNCTIONING.
[2023-02-14 20:08] VITALS: BP 112/71
[2023-02-15 03:35] VITALS: BP 142/85
--- NOTE | 2023-02-15 03:56 | NUR ---
SHIFT SUMMARY. PT AOX3, PLEASANT, COOPERATIVE WITH CARE. OCCASIONAL MOMENTS OF CONFUSION/DISORIENTATION EVIDENCED BY PT PULLING IV EARLY THIS MORNING HE COMPLAINS IT WAS BOTHERING HIM. NO COMPLAINTS OF PAIN THIS SHIFT. FINGER PULSE OX SENSOR WAS FREQUENTLY ALARMING DUE TO LOW FINGER PERFUSION. CALLED RESPIRATORY THERAPY WHO WAS ABLE TO APPLY AN EAR LOBE PROBE FOR CONTINUOUS PULSE OX WHICH HAS BEEN READING SATURATION >90% SINCE APPLICATION. PT NOW ON 3 L O2 VIA NC. PT HAS BEEN MOSTLY COOPERATIVE WITH CARE AND HAS NOT PULLED PROBE/O2 OFF MORE THAN ONE TIME. BED LOCKED IN LOWEST POSITION. CALLS APPROPRIATELY FOR ASSISTANCE. CALL LIGHT LEFT WITHIN REACH.
[2023-02-15 05:40] LABS: BASOPHILS ABSOLUTE AUTO 0.01 K/mm3 (0.00-0.23); BASOPHILS PERCENT AUTO 0 % (0-2); EOSINOPHILS ABSOLUTE AUTO 0.03 K/mm3 (0.00-0.68); EOSINOPHILS PERCENT AUTO 0 % (0-6); Hematocrit 28.3 % (37.0-53.0); Hemoglobin 8.5 g/dL (13.5-17.5); IMMATURE GRAN ABSOLUTE AUTO 0.03 K/mm3 (0.00-0.10); IMMATURE GRAN PERCENT AUTO 0 % (0-1); LYMPHOCYTES ABSOLUTE AUTO 1.04 K/mm3 (0.84-5.20); LYMPHOCYTES PERCENT AUTO 14 % (21-46); MONOCYTES ABSOLUTE AUTO 0.51 K/mm3 (0.16-1.47); MONOCYTES PERCENT AUTO 7 % (4-13); Mean Corpuscular HGB 22.8 pg (26.0-34.0); Mean Corpuscular Volume 76 fL (80-100); Mean Platelet Volume 9.5 fL (9.1-12.4); NEUTROPHILS ABSOLUTE AUTO 5.73 K/mm3 (1.96-9.15); NEUTROPHILS PERCENT AUTO 78 % (41-73); Platelet Count 351 K/mm3 (150-400); RDW Coefficient Variation 16.3 % (11.7-14.2); RDW Standard Deviation 44.2 fL (35.1-46.3); Red Blood Cell Count 3.73 M/mm3 (4.30-5.90); White Blood Cell Count 7.35 K/mm3 (4.00-11.30)
[2023-02-15 05:50] LABS: Bun/Creatinine Ratio 36.3 (12.0-20.0); Calcium, Blood 8.2 mg/dL (8.5-10.1); Creatinine, Blood 1.24 mg/dL (0.60-1.20); Potassium, Blood 4.2 mmol/L (3.5-5.5)
[2023-02-15 07:35] VITALS: BP 114/80
--- NOTE | 2023-02-15 12:00 | NUR ---
REPORT GIVEN TO MARIA G BARRIGA. PT INDEPENDENT IN ROOM. COOPERATING WITH KEEPING CONTINUOUS PULSE OX ON HIS EAR AND READJUSTS NEEDED ESPECIALLY WHEN IT ISN'T READING. KEEPING O2 ON AND NEEDS LESS REMINDING TO KEEP IT ON. MORE ORIENTED AND APPROPRIATE TODAY THAN YESTERDAY. TOOK A.M MEDS AND DIDN[T ATTEMPT TO HIDE THEM. VISTERIL GIVEN FOR ANXIETY. REMINDED TO USE URINAL OR HAT IN TOILET FOR MEASURING URINE.
[2023-02-15 15:30] VITALS: BP 116/72
--- NOTE | 2023-02-15 16:01 | NUR ---
Assumed care of patient at approx 1100. No acute chagnes t/o shift. Pt pulling off o2, encouraged to keep on and replaced mutliple time t/o shift. Report given to rn assuming care of patient.
--- NOTE | 2023-02-15 17:43 | NUR ---
CARE CONDFERENCE: Met with pt at his bedside this evening. He states he knows how sick his hear is, and is interested in discussion further into options. He is getting ready to get in the shower. Plan to return to see him in the morning, upon his request. We will continue our discussion on Home Health, hospice then.
--- NOTE | 2023-02-15 17:52 | NUR ---
SHIFT SUMMARY ASSUMED CARE OF PATIENT AT 1530. A&OX3-4, INTERMITTANTLY NONCOMPLIANT WITH CARE. CURRENTLY ON 8LI VIA NC HUMIDIFIED. O2 SAT ALL OVER THE PLACE T/O THE SHIFT PER REPORT. PATIENT WILL REFUSE TO WEAR THE OXIMETER OR O2 NC BUT CAN BE TALKED BACK INTO WEARING THEM. PALLIATIVE CARE CONSULTED. PATIENT IS EMOTIONAL ABOUT "LETTING IT GO TOO FAR" AND BEING "NOT READY TO ." USED THERAPEUTIC COMMUNICATION. PATIENT CURRENTLY SITTING AT THE SIDE OF THE BED EATING DINNER. CALL LIGHT WITHIN REACH.
[2023-02-15 19:28] VITALS: BP 116/65
[2023-02-15 20:57] LABS: PCO2 Arterial 42.6 mmHg (35-45); PO2 Arterial 179 mmHg (80-100); pH Blood Arterial 7.39 (7.35-7.45)
[2023-02-15 21:33] VITALS: BP 101/72
--- NOTE | 2023-02-15 22:41 | NUR ---
LATE NOTE: NOT LONG AFTER SHIFT CHANGE, PT WAS DESATURATING INTO MID-HIGH 70S ON CONTINUOUS PULSE OX DESPITE BEING ON UP TO 10 L O2 VIA NC. CALLED FOR ASSISTANCE FROM RESPIRATORY THERAPIST JAZMIN KELLY WHO PUT NONREBREATHER MASK ON PATIENT IN ATTEMPT TO INCREASE SATURATION. PT WAS NOT TOLERATING MASK AND AT THIS POINT WAS INCREASINGLY TACHYPNEIC AND TACHYCARDIC. PER RECOMMENDATION OF JAZMIN KELLY, PT WAS IN NEED OF BIOX THAT WAS AVAILABLE IN PCU. CALLED HOSPITALIST DUARTE WHO ORDERED TRANSFER TO PCU FOR BIOX WELL STAT ABG AND STAT CHEST XRAY. IMPLEMENTED BIOX ON FLOOR WHILE AWAITING TRANSFER BUT PT WAS UNABLE TO TOLERATE AND CONTINUED TO DESATURATE MEANWHILE. RECEIVED ASSISTANCE FROM SUPPORTING STAFF WHICH ALLOWED PT TO RESATURATE TO >90% O2 THROUGH ATIVAN AND NASAL CANNULA WHILE AWAITING PCU TRANSFER. GAVE REPORT TO PCU NURSE STELLA DUENAS AFTER SOME TIME AND PT WAS DELIVERED TO PCU BY DALIA REZA RN.
[2023-02-15 23:29] VITALS: BP 105/67
[2023-02-16] VITALS (7 sets, daily range): BP systolic 99–120; BP diastolic 66–84
[2023-02-16 03:55] LABS: BASOPHILS ABSOLUTE AUTO 0.03 K/mm3 (0.00-0.23); BASOPHILS PERCENT AUTO 0 % (0-2); EOSINOPHILS ABSOLUTE AUTO 0.01 K/mm3 (0.00-0.68); EOSINOPHILS PERCENT AUTO 0 % (0-6); Hematocrit 26.8 % (37.0-53.0); Hemoglobin 8.1 g/dL (13.5-17.5); IMMATURE GRAN ABSOLUTE AUTO 0.04 K/mm3 (0.00-0.10); IMMATURE GRAN PERCENT AUTO 1 % (0-1); LYMPHOCYTES ABSOLUTE AUTO 1.22 K/mm3 (0.84-5.20); LYMPHOCYTES PERCENT AUTO 17 % (21-46); MONOCYTES ABSOLUTE AUTO 0.64 K/mm3 (0.16-1.47); MONOCYTES PERCENT AUTO 9 % (4-13); Mean Corpuscular HGB Conc 30.2 g/dL (31.5-36.5); Mean Corpuscular Volume 76 fL (80-100); Mean Platelet Volume 9.8 fL (9.1-12.4); NEUTROPHILS ABSOLUTE AUTO 5.36 K/mm3 (1.96-9.15); NEUTROPHILS PERCENT AUTO 74 % (41-73); Platelet Count 345 K/mm3 (150-400); RDW Coefficient Variation 16.2 % (11.7-14.2); RDW Standard Deviation 44.2 fL (35.1-46.3); Red Blood Cell Count 3.52 M/mm3 (4.30-5.90)
[2023-02-16 06:36] LABS: Bun/Creatinine Ratio 40.3 (12.0-20.0); Calcium, Blood 8.3 mg/dL (8.5-10.1); Creatinine, Blood 1.19 mg/dL (0.60-1.20)
--- NOTE | 2023-02-16 07:08 | NUR ---
SHIFT SUMMARY PATIENT ALERT AND ORIENTED X3. ARRIVED TO PCU 10 ON 10 LITERS OF OXYGEN WITH A NON REBREATHER MASK, PATIENT WAS SATING 100% AND WAS TRANSFERRED TO A NASAL CANULA AND TITRATED TO 2 LITERS O2 VIA NC. PATIENT NOTED TO HAVE FREQUENT APNIC EPISODES WHILE SLEEPING AND DESATED TO THE LOW 80'S WHEN ON ROOM AIR. PHYSICIAN AWARE. PATIENT BECOMES SHORT OF BREATH EASILY WITH ACTIVITY. VITAL SIGNS STABLE, SINUS RHYTHM ON TELE. PATIENT FORGETFUL WITH USING THE CALL LIGHT OVERNIGHT. MEDICATED PER EMAR FOR ANXITEY. WILL CONTINUE TO MONITOR. CALL LIGHT WITHIN REACH.
--- NOTE | 2023-02-16 08:56 | NUR ---
ALERT, ORIENTED, ANXIOUS. MEDICATED WITH PRN HYDROXYZINE PER EMAR. 2L O2 VIA NC TO KEEP SATS ABOVE 95%. PATIENT REQUESTS NICOTINE GUM, NOT PATCHES. THIS RN RELAYED THE REQUEST TO DR FRANKS. SEEN AT BEDSIDE BY DR FRANKS AND DR GRAJEDA. ORDERS GIVEN FOR TRANSFER TO MEDICAL FLOOR WITH TELE.
[2023-02-16 14:07] LABS: Potassium, Blood 4.8 mmol/L (3.5-5.5)
--- NOTE | 2023-02-16 14:12 | NUR ---
MORNING SUMMARY ALERT, ORIENTED, SOMEWHAT COOPERATIVE. OCCASSIONALLY DOES NOT CALL, BED AND CHAIR ALARMS IN USE. TELE NSR WITH OCC PVC, STABLE BP. RESP 2L O2 VIA NC. DESATS WITH APNEAS WHEN SLEEPING. TACHYPNEIC WITH EXERTION AND ANXIETY. MEDICATED FOR ANXIETY PER EMAR. TOLERATING ADA DIET, NO CHEM BG OR INSULIN. BM THIS SHIFT. VOIDING. SKIN DRY AND TOUGH. NEW IV PLACED. NICOTINE PATCHES SWITCHED TO GUM. REPORT GIVEN TO MEDICAL FLOOR RN. PATIENT LEFT UNIT AT 1400 VIA WHEELCHAIR FOR ROOM 355.
--- NOTE | 2023-02-16 17:45 | NUR ---
CALLED FR PARAMETERS FOR IV LASIX DOSE- PT BP 110/84, CALLED FOR PARAMETERS FOR LASIX DOSE. MD CAME TO THE BEDSIDE TO ASSESS THE PT. 40G IV LASIX DOSE HELD PER AND DC'D. DOSE CHANGED TO 20MG IV BID FRST DOSE NOW.
--- NOTE | 2023-02-16 19:52 | NUR ---
SHIFT SUMMARY- PT ALERT AND ORIENTED TO SELF. PT CURRENTLY ON 3L VIA NC. HE HAS A BED ALARM FOR SAFETY, HE TRIES TO REMOVE EVERYTHING TO GO TO THE BATHROOM, TELE O2 ETC. AWARE. PASSED ON TO NIGHT RN THAT THE NEW IV LASIX DOSE NEEDS TO BE GIVEN. ALSO STRICT I'S&O'S. THERE IS A HAT IN THE PT BATHROOM, BUT HE OFTEN REMOVES IT BEFORE SITTING DOWN. PT HAS A LOT OF ANXIETY, VISTARIL SEEMS TO WORK WELL FOR HIM, THE SOUNDS OF DINGING MONITORS MAKES HIM ANXIOUS, STAFF SHOULD BE AWARE. PT IN BED SLEEPING AT THE TIME OF BEDSIDE REPORT. NO S&S OF DISTRESS NOTED.
[2023-02-17] VITALS (7 sets, daily range): BP systolic 101–118; BP diastolic 64–80
--- NOTE | 2023-02-17 06:02 | NUR ---
SHIFT SUMMARY PT IS ALERT AND ORIENTED TO SELF. PT IS ANXIOUS TONIGHT, AWAKE MOST OF SHIFT WANTING TO DO SOMETHING; REORIENTED PATIENT THAT IT WAS VERY EARLY IN THE MORNING AND THAT THERE WAS NOT MUCH DO AT THIS TIME. PT REMOVED OXYGEN MULTIPLE TIMES, REPLACED OXYGEN VIA NASAL CANNULA. PT MEDICATED PER EMAR FOR ANXIETY. PT REFUSED LASIX-SEE EMAR. PT DENIES CHEST PAIN/PRESSURE/TIGHTNESS AT THIS TIME. TELE IS ON. EXIT ALARM ENGAGED. BED IS LOCKED IN THE LOWEST POSITION WITH CALL LIGHT IN REACH. DENTURES ARE IN CUP ON BEDSIDE TABLE.
--- NOTE | 2023-02-17 06:43 | NUR ---
PT BECOMING INCREASINGLY AGITATED, CURSING IN ROOM THAT HE WANTS TO GO HOME, HE HAS BEEN HERE LONGER THEN HE WAS SUPPOSE TO BE, AND CURSING TO SELF. TRIED TO TALK TO PT REGARDING DOCTOR ROUNDS AND BEING ABLE TO DISCUSS HIS TREATMENT PLAN TODAY-PT STATED HE DOESNT WANT TO TALK TO THE DOCTOR HE WANTS TO GO HOME.
--- NOTE | 2023-02-17 07:30 | NUR ---
ASSUMED CARE OF PT- PT WAS VERY IRRITABLE THIS MORNING PER REPORT HE WAS LIKE THAT T/O THE NIGHT LAST NIGHT. HE REFUSED TO ALLOW STAFF TO GIVE IV LASIX LAST NIGHT, HE SAID THE IV HURTS TOO MUCH (IV IS PATENT WITH BLOOD RETURN). NIGHT STAFF OFFERED TO PLACE A NEW IV AND THE PT WOULD NOT ALLOW THEM TO DO SO. HE ALSO DECLINED IV ATIVAN. THIS MORNING HE WAS STILL ANGRY AND DID NOT WANT TO BE ASSESSED, HE DID NOT WANT MEDICATIONS SAYING "COME BACK IN AN HOUR" HE DID THE SAME WITH A SHOWER. THE PT HAS BEEN REMOVING HIS O2 AND O2 SATS ON ROOM AIR ARE 84%. HE HAS REMOVED THE TELE WELL. PT SEEMED TO BE HAVING TROUBLE BREATHING RT TRIED TO GIVE A Tx AND HE REFUSED.
[2023-02-17 07:44] LABS: BASOPHILS ABSOLUTE AUTO 0.02 K/mm3 (0.00-0.23); BASOPHILS PERCENT AUTO 0 % (0-2); EOSINOPHILS ABSOLUTE AUTO 0.01 K/mm3 (0.00-0.68); EOSINOPHILS PERCENT AUTO 0 % (0-6); Hematocrit 29.2 % (37.0-53.0); Hemoglobin 8.7 g/dL (13.5-17.5); IMMATURE GRAN ABSOLUTE AUTO 0.05 K/mm3 (0.00-0.10); IMMATURE GRAN PERCENT AUTO 1 % (0-1); LYMPHOCYTES ABSOLUTE AUTO 0.95 K/mm3 (0.84-5.20); LYMPHOCYTES PERCENT AUTO 15 % (21-46); MONOCYTES ABSOLUTE AUTO 0.49 K/mm3 (0.16-1.47); MONOCYTES PERCENT AUTO 8 % (4-13); Mean Corpuscular HGB 22.7 pg (26.0-34.0); Mean Corpuscular HGB Conc 29.8 g/dL (31.5-36.5); Mean Corpuscular Volume 76 fL (80-100); Mean Platelet Volume 9.5 fL (9.1-12.4); NEUTROPHILS ABSOLUTE AUTO 4.89 K/mm3 (1.96-9.15); NEUTROPHILS PERCENT AUTO 76 % (41-73); Platelet Count 441 K/mm3 (150-400); RDW Coefficient Variation 16.2 % (11.7-14.2); RDW Standard Deviation 44.4 fL (35.1-46.3); Red Blood Cell Count 3.84 M/mm3 (4.30-5.90); White Blood Cell Count 6.41 K/mm3 (4.00-11.30)
[2023-02-17 08:10] LABS: Albumin, Blood 3.2 g/dL (3.4-5.0); Albumin/Globulin Ratio 0.8 (0.8-1.8); Bilirubin, Total 1.5 mg/dL (0.1-1.0); Bun/Creatinine Ratio 47.8 (12.0-20.0); Calcium, Blood 8.6 mg/dL (8.5-10.1); Creatinine, Blood 1.36 mg/dL (0.60-1.20); Globulin, Blood 3.9 g/dL (2.2-4.0); Potassium, Blood 5.1 mmol/L (3.5-5.5); Total Protein, Blood 7.1 g/dL (6.4-8.2)
--- NOTE | 2023-02-17 10:30 | NUR ---
PT RECIEVED HIS MEDS! PT WAS MORE RELAXED AND WILLING TO ALLOW THIS RN TO PERFORM AN ASSESSMENT. HE ALSO WAS WILLING TO TAKE HIS MORNING MEDICATIONS. VITALS RECHECKED AND MORNING MEDS GIVEN. RT CAME TO DO A Tx AND THE PT REFUSED. PT REQUESTED A SHOWER AND THEN ASKED STAFF TO "COME BACK IN AN HOUR." WILL CONTINUE TO ATTEMPT TO PROVED THE CARE THE PT ALLOWS.
--- NOTE | 2023-02-17 17:19 | NUR ---
SHIFT SUMMARY- PT ALERT AND ORIENTED TO SELF. PT HAD A BM ACCIDENT TODAY. HE HAD A SHOWER THIS MORNING AND AFTER THAT HE APPOLOGIZED FOR HIS BEHAVIOR LAST NIGHT AND THIS MORNING. DR GRAJEDA ASKED THIS RN TO TALK TO THE PT ABOUT TAKING IV LASIX, HE AGREED TO DO SO ONCE A NEW IV WAS OFFERED TO BE PLACED. PT NOW HAS A 20G IN THE LEFT FOREARM. HE RECIEVED HIS FIRST DOSE OF IV LASIX AT 1430 OR SO. CALLED PHARMACY THE PT RECIEVED 60MG PO AT NEARLY 1100 (WHEN HE WAS WILLING TO TAKE HIS MEDS), THE NEXT DOSE OF LASIX IS DUE AT 1800. SPOKE WITH THE PHARMACY AND THE RECOMENDATION IS TO PUSH THE NEXT DOSE OUT TO ABOUT 2000. IT IS REALLY CLOSE TO THE PREVIOUS DOSE. WILL PASS ON TO NIGHT RN. PT HAS BEEN COMPLIANT FOR THE SECOND HALF OF THE SHIFT. WEARING HIS O2 AND CALLING FOR ASSISTANCE TO USE THE URINAL.
[2023-02-18 04:15] VITALS: BP 100/76
--- NOTE | 2023-02-18 04:18 | NUR ---
SHIFT SUMMARY PT IS ALERT AND ORIENTED TO PERSON, PLACE, SELF. PT UP A LOT T/O SHIFT, PT REPORTS DIFFICULTY SLEEPING DUE TO THE NEED TO URINATE FREQUENTLY. PT WAS AGITATED ABOUT LASIX; PT SAW THAT HIS FEET WERE NOT SWOLLEN, EXPLAINED THAT THE LASIX HELP TO REMOVE THIS FLUID. PT DENIES CHEST PAIN/PRESSURE/TIGHTNESS AT THIS TIME. PT HAS TAKEN OXYGEN OFF MULTPLE TIMES THIS SHIFT, ASSISTED HIM WITH PUTTING BACK ON. PT HAS BEEN COUGHING THIS AM SPIRATICALLY. PT HAS BEEN COOPERATIVE WITH CARE. BE IS LOCKED IN THE LOWEST POSITION, EXIT ALARM ENGAGED AND CALL LIGHT WITHIN REACH. NO S/S OF DISTRESS AT THIS TIME.
--- NOTE | 2023-02-18 05:00 | NUR ---
PCU TELE AIRPLANE CABIN ATTENDANT CALLED PT HAD A 5 BEAT RUN OF [facility], PT ASYMPTOMATIC SITTING AT SIDE OF BED DRINKING COFFEE.
[2023-02-18 05:23] LABS: BASOPHILS ABSOLUTE AUTO 0.02 K/mm3 (0.00-0.23); BASOPHILS PERCENT AUTO 0 % (0-2); EOSINOPHILS ABSOLUTE AUTO 0.02 K/mm3 (0.00-0.68); EOSINOPHILS PERCENT AUTO 0 % (0-6); Hematocrit 27.3 % (37.0-53.0); Hemoglobin 8.4 g/dL (13.5-17.5); IMMATURE GRAN ABSOLUTE AUTO 0.03 K/mm3 (0.00-0.10); IMMATURE GRAN PERCENT AUTO 1 % (0-1); LYMPHOCYTES PERCENT AUTO 18 % (21-46); MONOCYTES ABSOLUTE AUTO 0.58 K/mm3 (0.16-1.47); MONOCYTES PERCENT AUTO 9 % (4-13); Mean Corpuscular HGB Conc 30.8 g/dL (31.5-36.5); Mean Corpuscular Volume 75 fL (80-100); Mean Platelet Volume 9.4 fL (9.1-12.4); NEUTROPHILS ABSOLUTE AUTO 4.77 K/mm3 (1.96-9.15); NEUTROPHILS PERCENT AUTO 72 % (41-73); Platelet Count 425 K/mm3 (150-400); RDW Coefficient Variation 16.3 % (11.7-14.2); RDW Standard Deviation 43.7 fL (35.1-46.3); Red Blood Cell Count 3.66 M/mm3 (4.30-5.90); White Blood Cell Count 6.62 K/mm3 (4.00-11.30)
[2023-02-18 05:44] LABS: Bun/Creatinine Ratio 49.3 (12.0-20.0); Creatinine, Blood 1.38 mg/dL (0.60-1.20); Potassium, Blood 4.2 mmol/L (3.5-5.5)
[2023-02-18 07:46] VITALS: BP 110/71
[2023-02-18] MEDS ORDERED: Celexa20 MG PO (15:05)
[2023-02-18] MEDS ORDERED: NICO2 PO (15:05)
[2023-02-18] MEDS ORDERED: FURO20 PO (15:10)
--- NOTE | 2023-02-18 15:24 | NUR ---
SHIFT/DISCHARGE SUMMARY Pt remains A&Ox3 this shift. Denies pain. VSS. Resp even nonlabored on NC. Home oxygen delivered bedside. Voiding without difficulty. All discharge instructions reviewed with return verbal understanding. Awaiting 1600 transport home.
== END 2023-02-18 15:45 | disposition home or self-care (01) | DRG 291 ==
LOC: ER 19:51 → MEDS 19:52 → PCU 02-15 21:43 → MEDS 02-16 14:06
PROVIDERS: Emergency Medicine; Family Medicine; Internal Medicine; Nurse Practitioner Acute Care; Student in an Organized Health Care Education/Training Program; ADMIT Internal Medicine
PROC: 4A033R1 Measurement of Arterial Saturation, Peripheral, Percutaneous Approach (ICD-10-PCS; principal; 2023-02-15)
DX: I11.0 Hypertensive heart disease with heart failure (principal); I50.23 Acute on chronic systolic (congestive) heart failure; J96.01 Acute respiratory failure with hypoxia; Z20.822 Contact with and (suspected) exposure to COVID-19; J44.9 Chronic obstructive pulmonary disease, unspecified; R74.01 Elevation of levels of liver transaminase levels; F41.9 Anxiety disorder, unspecified; D50.9 Iron deficiency anemia, unspecified; I27.20 Pulmonary hypertension, unspecified; I42.7 Cardiomyopathy due to drug and external agent; T43.655A Adverse effect of methamphetamines, initial encounter; I35.1 Nonrheumatic aortic (valve) insufficiency; F15.90 Other stimulant use, unspecified, uncomplicated; F17.210 Nicotine dependence, cigarettes, uncomplicated; Z91.048 Other nonmedicinal substance allergy status; Z79.82 Long term (current) use of aspirin; Z79.899 Other long term (current) drug therapy; Z59.82 Transportation insecurity
CPT/HCPCS: 0241U; 36415; 36600; 71045; 80048; 80053; 82607; 82728; 82746; 82803; 82947; 83540; 83550; 83880; 84484; 85025; 86704; 86708; 86803; 87340; 93005; 93010; 93306; 94640; 94760; 94761; 94762; 96374; 96376; 97110; 97129; 97161; 97165; 99285-25; A9270; G0378; J1200; J1940; J2060; Q0177

== ENCOUNTER 2023-03-20 22:35 | Emergency (ER) | payer OTHER ==
[~2023-03-20] VITALS: Ht 167.6 cm; Wt 61.2 kg
[~2023-03-20 22:35] MED LIST changes: +Celexa20 MG PO; +NICO2 PO
[2023-03-20 23:17] LABS: BASOPHILS ABSOLUTE AUTO 0.02 K/mm3 (0.00-0.23); BASOPHILS PERCENT AUTO 0 % (0-2); EOSINOPHILS ABSOLUTE AUTO 0.07 K/mm3 (0.00-0.68); EOSINOPHILS PERCENT AUTO 1 % (0-6); Hematocrit 28.4 % (37.0-53.0); IMMATURE GRAN ABSOLUTE AUTO 0.03 K/mm3 (0.00-0.10); IMMATURE GRAN PERCENT AUTO 0 % (0-1); LYMPHOCYTES ABSOLUTE AUTO 1.13 K/mm3 (0.84-5.20); LYMPHOCYTES PERCENT AUTO 15 % (21-46); MONOCYTES ABSOLUTE AUTO 0.62 K/mm3 (0.16-1.47); MONOCYTES PERCENT AUTO 8 % (4-13); Mean Corpuscular HGB 20.7 pg (26.0-34.0); Mean Corpuscular HGB Conc 28.2 g/dL (31.5-36.5); Mean Corpuscular Volume 74 fL (80-100); Mean Platelet Volume 9.2 fL (9.1-12.4); NEUTROPHILS ABSOLUTE AUTO 5.61 K/mm3 (1.96-9.15); NEUTROPHILS PERCENT AUTO 75 % (41-73); Platelet Count 417 K/mm3 (150-400); RDW Coefficient Variation 17.3 % (11.7-14.2); RDW Standard Deviation 45.1 fL (35.1-46.3); Red Blood Cell Count 3.86 M/mm3 (4.30-5.90); White Blood Cell Count 7.48 K/mm3 (4.00-11.30)
[2023-03-20 23:26] LABS: Bun/Creatinine Ratio 37.8 (12.0-20.0); Calcium, Blood 8.1 mg/dL (8.5-10.1); Creatinine, Blood 0.79 mg/dL (0.60-1.20); Potassium, Blood 3.9 mmol/L (3.5-5.5)
[2023-03-20] MEDS ORDERED: Lasix20 MG PO (23:30)
[2023-03-20 23:45] VITALS: BP 168/70
== END 2023-03-21 00:07 | disposition home or self-care (01) ==
LOC: ER 22:35
PROVIDERS: Emergency Medicine
DX: I11.0 Hypertensive heart disease with heart failure (principal); I50.20 Unspecified systolic (congestive) heart failure
CPT/HCPCS: 80048; 83735; 85025; 93005; 93010; 96374; 99284-25; J1940

== ENCOUNTER 2023-03-28 11:00 | Emergency (ER) | payer OTHER ==
[~2023-03-28] VITALS: Ht 165.1 cm; Wt 68.0 kg
[~2023-03-28 11:00] MED LIST changes: +Lasix20 MG PO
[2023-03-28 11:37] LABS: BASOPHILS ABSOLUTE AUTO 0.01 K/mm3 (0.00-0.23); BASOPHILS PERCENT AUTO 0 % (0-2); EOSINOPHILS ABSOLUTE AUTO 0.05 K/mm3 (0.00-0.68); EOSINOPHILS PERCENT AUTO 1 % (0-6); Hematocrit 29.1 % (37.0-53.0); Hemoglobin 8.5 g/dL (13.5-17.5); IMMATURE GRAN ABSOLUTE AUTO 0.01 K/mm3 (0.00-0.10); IMMATURE GRAN PERCENT AUTO 0 % (0-1); LYMPHOCYTES ABSOLUTE AUTO 0.89 K/mm3 (0.84-5.20); LYMPHOCYTES PERCENT AUTO 15 % (21-46); MONOCYTES ABSOLUTE AUTO 0.38 K/mm3 (0.16-1.47); MONOCYTES PERCENT AUTO 6 % (4-13); Mean Corpuscular HGB 20.9 pg (26.0-34.0); Mean Corpuscular HGB Conc 29.2 g/dL (31.5-36.5); Mean Corpuscular Volume 72 fL (80-100); Mean Platelet Volume 9.1 fL (9.1-12.4); NEUTROPHILS ABSOLUTE AUTO 4.56 K/mm3 (1.96-9.15); NEUTROPHILS PERCENT AUTO 77 % (41-73); Platelet Count 377 K/mm3 (150-400); RDW Coefficient Variation 18.2 % (11.7-14.2); RDW Standard Deviation 46.1 fL (35.1-46.3); Red Blood Cell Count 4.07 M/mm3 (4.30-5.90)
[2023-03-28 12:08] LABS: BASOPHILS PERCENT MAN 0 % (0-2); EOSINOPHILS PERCENT MAN 0 % (0-6); MONOCYTES PERCENT MAN 0 % (4-13); SEG NEUTROPHILS PERCENT MAN 100 % (41-73); TOTAL CELLS COUNTED 1
[2023-03-28 12:21] LABS: Albumin, Blood 3.1 g/dL (3.4-5.0); Albumin/Globulin Ratio 0.9 (0.8-1.8); Bilirubin, Total 1.2 mg/dL (0.1-1.0); Bun/Creatinine Ratio 26.2 (12.0-20.0); Calcium, Blood 8.1 mg/dL (8.5-10.1); Creatinine, Blood 0.73 mg/dL (0.60-1.20); Globulin, Blood 3.6 g/dL (2.2-4.0); Potassium, Blood 3.2 mmol/L (3.5-5.5); Total Protein, Blood 6.7 g/dL (6.4-8.2)
[2023-03-28 13:56] VITALS: BP 137/90
== END 2023-03-28 15:02 | disposition home or self-care (01) ==
LOC: ER 11:00
PROVIDERS: Emergency Medicine
DX: I11.0 Hypertensive heart disease with heart failure (principal); I50.9 Heart failure, unspecified; J44.9 Chronic obstructive pulmonary disease, unspecified; F17.200 Nicotine dependence, unspecified, uncomplicated; Z91.048 Other nonmedicinal substance allergy status; Z79.899 Other long term (current) drug therapy; Z79.82 Long term (current) use of aspirin
CPT/HCPCS: 71045; 80053; 83880; 85025; 93005; 93010; 96374; 99284-25; J1940

== ENCOUNTER 2023-04-09 15:11 | Emergency (ER) | payer OTHER ==
[~2023-04-09] VITALS: Ht 162.6 cm; Wt 47.6 kg
[2023-04-09 16:00] LABS: BASOPHILS ABSOLUTE AUTO 0.02 K/mm3 (0.00-0.23); BASOPHILS PERCENT AUTO 0 % (0-2); EOSINOPHILS ABSOLUTE AUTO 0.02 K/mm3 (0.00-0.68); EOSINOPHILS PERCENT AUTO 0 % (0-6); Hemoglobin 10.1 g/dL (13.5-17.5); IMMATURE GRAN ABSOLUTE AUTO 0.02 K/mm3 (0.00-0.10); IMMATURE GRAN PERCENT AUTO 0 % (0-1); LYMPHOCYTES ABSOLUTE AUTO 1.02 K/mm3 (0.84-5.20); LYMPHOCYTES PERCENT AUTO 13 % (21-46); MONOCYTES ABSOLUTE AUTO 0.35 K/mm3 (0.16-1.47); MONOCYTES PERCENT AUTO 4 % (4-13); Mean Corpuscular HGB 20.1 pg (26.0-34.0); Mean Corpuscular HGB Conc 28.1 g/dL (31.5-36.5); Mean Corpuscular Volume 72 fL (80-100); Mean Platelet Volume 9.5 fL (9.1-12.4); NEUTROPHILS ABSOLUTE AUTO 6.66 K/mm3 (1.96-9.15); NEUTROPHILS PERCENT AUTO 83 % (41-73); Platelet Count 415 K/mm3 (150-400); RDW Coefficient Variation 19.6 % (11.7-14.2); RDW Standard Deviation 48.5 fL (35.1-46.3); Red Blood Cell Count 5.03 M/mm3 (4.30-5.90); White Blood Cell Count 8.09 K/mm3 (4.00-11.30)
[2023-04-09 16:19] LABS: Albumin, Blood 2.9 g/dL (3.4-5.0); Albumin/Globulin Ratio 0.6 (0.8-1.8); Bilirubin, Total 1.1 mg/dL (0.1-1.0); Bun/Creatinine Ratio 37.5 (12.0-20.0); Calcium, Blood 8.2 mg/dL (8.5-10.1); Creatinine, Blood 0.8 mg/dL (0.60-1.20); Globulin, Blood 4.5 g/dL (2.2-4.0); Potassium, Blood 4.1 mmol/L (3.5-5.5); Total Protein, Blood 7.4 g/dL (6.4-8.2)
[2023-04-09] MEDS ORDERED: AZIT250 PO (16:53)
[2023-04-09] MEDS ORDERED: BENZ100A PO (16:53)
[2023-04-09] MEDS ORDERED: Prednisone20 MG PO (16:53)
[2023-04-09 17:15] VITALS: BP 119/87
== END 2023-04-09 17:34 | disposition home or self-care (01) ==
LOC: ER 15:11
PROVIDERS: Emergency Medicine
DX: R05.9 Cough, unspecified (principal); I11.0 Hypertensive heart disease with heart failure; I50.9 Heart failure, unspecified; J44.9 Chronic obstructive pulmonary disease, unspecified; F17.210 Nicotine dependence, cigarettes, uncomplicated; Z91.048 Other nonmedicinal substance allergy status; Z79.899 Other long term (current) drug therapy; Z79.82 Long term (current) use of aspirin
CPT/HCPCS: 71045; 80053; 83880; 85025; 93005; 93010; 99284-25; A9270; J7512